=== PATIENT | male | born 1975 | race Caucasian/White ===

== ENCOUNTER → 2023-05-21 | Day surgery (SDC) | payer OTHER ==
[2023-05-18 10:20] LABS: HEMATOCRIT 45.8 % (39.0-48.0); HEMOGLOBIN 15.6 g/dL (13-16.00); MEAN CELL VOLUME 95.6 fL (80.0-100.00); MEAN CORPUSCULAR HEMOGLOBIN 32.6 pg (27.00-32.0); MEAN CORPUSCULAR HGB CONC 34.1 g/dl (32.0-36.0); PLATELET COUNT 148 K/uL (150-450); RED BLOOD COUNT 4.79 M/uL (4.00-6.00); RED CELL DISTRIBUTION WIDTH 12.9 % (11.5-14.5)
[2023-05-18 10:36] LABS: URINE APPEARANCE Clear; URINE BILIRRUBIN Negative (NEGATIVE); URINE BLOOD Moderate; URINE COLOR Yellow; URINE GLUCOSE Negative (NEGATIVE); URINE LEUKOCYTE Negative; URINE NITRATE Negative; URINE PROTEIN Trace (NEGATIVE)
[2023-05-18 10:40] LABS: URINE RBC 149.5 uL (0.0-20.8); URINE WBC 2.1 uL (0.0-23.2)
[2023-05-18 10:46] LABS: URINE BACTERIA 3.7 uL (0.0-1933); URINE EPITHELIAL CELLS 0.9 uL (0.0-38.8)
[2023-05-18 10:47] LABS: INR 1.13; PARTIAL THROMBOPLASTIN TIME 26.2 SECONDS (22.0-34.0); PROTHROMBIN TIME 11.8 SECONDS (9.0-11.5)
[2023-05-18 11:14] LABS: CALCIUM 9.2 mg/dL (8.5-10.1); CREATININE SERUM 0.99 mg/dL (0.70-1.30); GFR 81.38; POTASSIUM 4.11 mEq/L (3.5-5.1)
[~2023-05-21] VITALS: Ht 180.3 cm; Wt 101.2 kg
== END | disposition home or self-care (01) ==
LOC: ADM 05-18 09:15 → CIR.AMB 06:08
PROVIDERS: ATTEND Urology
DX: N50.3 Cyst of epididymis (principal); Z30.2 Encounter for sterilization; Z98.52 Vasectomy status; N43.3 Hydrocele, unspecified; Z20.822 Contact with and (suspected) exposure to COVID-19